=== PATIENT | female | born 1940 | race Caucasian/White ===

== ENCOUNTER 2021-03-21 12:59 | Observation (INO) | payer MEDICARE, OTHER ==
--- NOTE | 2021-03-21 13:08 | ERPHSYRPT ---
- History of Present Illness Time Seen by Provider: 03/21/21 13:05 Historian: patient Exam Limitations: no limitations Physician History: This is an 80-year-old white female who is insulin dependent diabetic and has hypothyroidism who states she has no known coronary artery disease and is not on any blood thinning medication and presents with 3-day history of intermittent and worsening left anterior chest pain which radiates into the left shoulder and left arm. 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 However, in reviewing the patient's records here she did see Dr. Browne in 2011. Timing/Duration: day(s) (3) Activities at Onset: none Quality: aching, pressure Location: other (Left anterior chest) Chest Pain Radiation: arm (Left shoulder and left upper arm) Severity of Pain-Max: moderate Severity of Pain-Current: mild (To moderate) Modifying Factors: Improves With: exertion Prior Chest Pain/Cardiac Workup: no prior chest pain, no prior cardiac workup Nitro Today/Relief: no nitro taken today Aspirin Treatment Today: no aspirin today Allergies/Adverse Reactions: Sulfa (Sulfonamide Antibiotics) Allergy (Verified 03/21/21 13:12) Home Medications: Insulin NPH Human Isophane [Novolin N] 20 units DAILY 03/21/21 [History] Insulin Regular, Human [Novolin R] 10 units DAILY 03/21/21 [History] Insulin Regular, Human [Novolin R] 12 units DAILY 03/21/21 [History] Levothyroxine Sodium [Euthyrox] 1 ea DAILY 03/21/21 [History] Travel Risk - International Travel Have you traveled outside of the country in past 3 weeks: No - Coronavirus Screening Are you exhibiting any of the following symptoms?: No Close contact with a COVID-19 positive Pt in past 14-21 Days: No - Review of Systems Constitutional: No Symptoms Eyes: No Symptoms Ears, Nose, & Throat: No Symptoms Respiratory: No Symptoms Cardiac: Chest Pain Abdominal/Gastrointestinal: No Symptoms Genitourinary Symptoms: No Symptoms Musculoskeletal: No Symptoms Skin: No Symptoms Neurological: No Symptoms Psychological: No Symptoms Endocrine: No Symptoms Hematologic/Lymphatic: No Symptoms Immunological/Allergic: No Symptoms All Other Systems: Reviewed and Negative - Past Medical History Pertinent Past Medical History: Yes - Past Surgical History Past Surgical History: Yes - Nursing Vital Signs Nursing Vital Signs: Initial Vital Signs Pulse Rate 60 03/21/21 13:00 O2 Sat by Pulse Oximetry 97 03/21/21 13:00 Pain Scale Pain Intensity 8 - Physical Exam General Appearance: mild distress, alert, anxiety Eye Exam: PERRL/EOMI, eyes nml inspection Ears, Nose, Throat Exam: normal ENT inspection, moist mucous membranes Neck Exam: normal inspection, non-tender, supple, full range of motion Respiratory Exam: normal breath sounds, chest tenderness (Left anterior chest), lungs clear, respiratory distress, airway intact Cardiovascular Exam: regular rate/rhythm, normal heart sounds, normal peripheral pulses Gastrointestinal/Abdomen Exam: soft, normal bowel sounds, No tenderness Pelvic Exam: not done Rectal Exam: not done Back Exam: normal inspection, normal range of motion, No CVA tenderness, No vertebral tenderness Extremity Exam: normal inspection, normal range of motion, pelvis stable Neurologic Exam: alert, oriented x 3, cooperative, 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 There is no comparison EKG available.) Ordered Tests: Active Orders 24 hr Category Date Time Status Application Integration Architect STAT Care 03/21/21 13:10 Active EKG-ER Only STAT Care 03/21/21 13:09 Active IV Insertion STAT Care 03/21/21 13:09 Active Pulse Oximetry (ED) STAT Care 03/21/21 13:09 Active CHEST 1 VIEW (PORTABLE) Stat Exams 03/21/21 13:10 Completed CBC W DIFF Stat Lab 03/21/21 13:13 Completed CMP Stat Lab 03/21/21 13:13 Completed D-DIMER QUANTITATIVE Stat Lab 03/21/21 13:13 Completed NT PRO BNP Stat Lab 03/21/21 13:13 Completed PROTIME WITH INR Stat Lab 03/21/21 13:13 Completed T4 (Thyroxine) Stat Lab 03/21/21 13:30 Completed TROPONIN Q3H Lab 03/21/21 13:13 Completed TROPONIN Q3H Lab 03/21/21 16:15 Ordered TROPONIN Q3H Lab 03/21/21 19:15 Ordered TROPONIN Q3H Lab 03/21/21 22:15 Ordered TROPONIN Q3H Lab 03/22/21 01:15 Ordered TSH [TSH, 3RD Generation] Stat Lab 03/21/21 13:53 Ordered Medication Summary Generic Name Dose Route Start Last Admin Trade Name Anthony PRN Reason Stop Dose Admin Sodium Chloride 500 mls @ 50 mls/hr 03/21/21 13:15 03/21/21 13:41 Sodium Chloride 0.9% 500 Ml IV 04/20/21 13:14 50 mls/hr .Q10H VERNA Administration Discontinued Medications Generic Name Dose Route Start Last Admin Trade Name Frejay PRN Reason Stop Dose Admin Aspirin 324 mg 03/21/21 13:09 03/21/21 13:41 Aspirin 81 Mg Tab.Chew PO 03/21/21 13:10 324 mg STAT ONE Administration Furosemide 40 mg 03/21/21 14:13 Furosemide 40 Mg/4 Ml Vial IV 03/21/21 14:14 STAT ONE Sodium Chloride Confirm 03/21/21 13:39 Sodium Chloride 0.9% 1000 Ml Administered 03/21/21 13:40 Dose 1,000 mls @ ud .ROUTE .STK-MED ONE Morphine Sulfate 2 mg 03/21/21 13:09 03/21/21 13:56 Morphine Sulfate 2 Mg/Ml Inj IV 03/21/21 13:10 2 mg STAT ONE Administration Morphine Sulfate Confirm 03/21/21 13:54 Morphine Sulfate 2 Mg/Ml Inj Administered 03/21/21 13:55 Dose 2 mg .ROUTE .STK-MED ONE Nitroglycerin 0.4 mg 03/21/21 13:09 03/21/21 13:46 Nitroglycerin 0.4 Mg (Ed) 0.4 Mg Tab.Subl SL 03/21/21 13:10 0.4 mg STAT ONE Administration Nitroglycerin Confirm 03/21/21 13:46 Nitroglycerin 0.4 Mg (Ed) 0.4 Mg Tab.Subl Administered 03/21/21 13:47 Dose 0.4 mg SL .STK-MED ONE Lab/Rad Data: Laboratory Result Diagrams 03/21/21 13:13 03/21/21 13:13 Laboratory Results 03/21/21 03/21/21 03/21/21 Range/Units 13:30 13:13 13:13 WBC (4.0-10.5) K/mm3 RBC (4.1-5.4) M/mm3 Hgb (12.0-16.0) gm/dl Hct (35-47) % MCV (78-100) fl MCH (26-32) pg MCHC (32-36) g/dl RDW (11.5-14.0) % Plt Count (150-450) K/mm3 MPV (7.5-11.0) fl Gran % (36.0-66.0) % Eos # (Auto) (0-0.5) Absolute Lymphs (auto) (1.0-4.6) Absolute Monos (auto) (0.0-1.3) Lymphocytes % (24.0-44.0) % Monocytes % (0.0-12.0) % Eosinophils % (0.00-5.0) % Basophils % (0.0-0.4) % Absolute Granulocytes (1.4-6.9) Basophils # (0-0.4) PT 12.0 (9.4-12.5) SECONDS INR 1.02 (0.8-3.0) D-Dimer 480 (215-500) ng/mL Sodium (137-145) mmol/L Potassium (3.5-5.1) mmol/L Chloride (98-107) mmol/L Carbon Dioxide (22-30) mmol/L Anion Gap (5-15) MEQ/L BUN (7-17) mg/dL Creatinine (0.52-1.04) mg/dL Estimated GFR ML/MIN Glucose (74-106) mg/dL Calcium (8.4-10.2) mg/dL Total Bilirubin (0.2-1.3) mg/dL AST (14-36) U/L ALT (0-35) U/L Alkaline Phosphatase (38-126) U/L Troponin I 0.997 H* (0.000-0.034) ng/mL NT-Pro-B Natriuret Pep (0-1800) pg/mL Serum Total Protein (6.3-8.2) g/dL Albumin (3.5-5.0) g/dL Thyroxine (T4) 12.8 H (5.53-10.96) ug/dL 03/21/21 03/21/21 Range/Units 13:13 13:13 WBC 7.2 (4.0-10.5) K/mm3 RBC 4.40 (4.1-5.4) M/mm3 Hgb 13.4 (12.0-16.0) gm/dl Hct 41.3 (35-47) % MCV 93.9 (78-100) fl MCH 30.5 (26-32) pg MCHC 32.4 (32-36) g/dl RDW 12.9 (11.5-14.0) % Plt Count 174 (150-450) K/mm3 MPV 9.7 (7.5-11.0) fl Gran % 56.3 (36.0-66.0) % Eos # (Auto) 0.18 (0-0.5) Absolute Lymphs (auto) 2.28 (1.0-4.6) Absolute Monos (auto) 0.63 (0.0-1.3) Lymphocytes % 31.8 (24.0-44.0) % Monocytes % 8.8 (0.0-12.0) % Eosinophils % 2.5 (0.00-5.0) % Basophils % 0.6 (0.0-0.4) % Absolute Granulocytes 4.05 (1.4-6.9) Basophils # 0.04 (0-0.4) PT (9.4-12.5) SECONDS INR (0.8-3.0) D-Dimer (215-500) ng/mL Sodium 138 (137-145) mmol/L Potassium 4.0 (3.5-5.1) mmol/L Chloride 97 L (98-107) mmol/L Carbon Dioxide 33 H (22-30) mmol/L Anion Gap 12.0 (5-15) MEQ/L BUN 17 (7-17) mg/dL Creatinine 1.08 H (0.52-1.04) mg/dL Estimated GFR 51.8 ML/MIN Glucose 133 H (74-106) mg/dL Calcium 9.4 (8.4-10.2) mg/dL Total Bilirubin 0.70 (0.2-1.3) mg/dL AST 26 (14-36) U/L ALT 16 (0-35) U/L Alkaline Phosphatase 62 (38-126) U/L Troponin I (0.000-0.034) ng/mL NT-Pro-B Natriuret Pep 2650 H (0-1800) pg/mL Serum Total Protein 6.9 (6.3-8.2) g/dL Albumin 4.1 (3.5-5.0) g/dL Thyroxine (T4) (5.53-10.96) ug/dL - Progress Progress: improved, re-examined Air Movement: good Progress Note: 03/21/21 13:43 Chest x-ray shows chronic features. There are no acute cardiopulmonary processes. Blood Culture(s) Obtained: No Antibiotics given: No Discussed with Dr.: Davis (From cardiology. He recommends transfer if possible. If not possible then Lovenox and cholesterol-lowering agent at this facility until a bed opens up where cardiology is present) Counseled pt/family regarding: lab results, diagnosis, need for follow-up, rad results - Departure Clinical Impression: NSTEMI, initial episode of care Condition: Stable Critical Care Time: Yes Critical Care Time(excluding separately billable procedures): Critical 30-74 mins (30) Referrals: DOCTOR,NO FAMILY [Primary Care Provider] - Follow up/PCP as directed
[2021-03-21] MEDS ORDERED: BABY ASPIRIN 81 MG CHEW PO ONE (13:09)
[2021-03-21] MEDS ORDERED: Nitrostat 0.4 MG (ED) SL ONE ×2 (13:09→13:46)
[2021-03-21] MEDS ORDERED: MORPHINE SULFATE 2 MG INJ IV ONE (13:09)
[2021-03-21] MEDS ORDERED: Sodium Chloride 0.9% 500 ML 500 ML IV SCH (13:15)
[2021-03-21 13:22] LABS: Absolute Neutrophil Ct (ANC) 4.05 (1.4-6.9); Basophil (Absolute #) 0.04 (0-0.4); Eosinophil % 2.5 % (0.00-5.0); Eosinophil (Absolute #) 0.18 (0-0.5); Hematocrit 41.3 % (35-47); Hemoglobin 13.4 gm/dl (12.0-16.0); Lymphocyte (Absolute #) 2.28 (1.0-4.6); Lymphocytes % 31.8 % (24.0-44.0); Mean Cell Volume 93.9 fl (78-100); Mean Corpuscular Hemoglobin 30.5 pg (26-32); Mean Corpuscular Hgb Concent. 32.4 g/dl (32-36); Mean Platelet Volume 9.7 fl (7.5-11.0); Monocyte (Absolute #) 0.63 (0.0-1.3); Monocytes % 8.8 % (0.0-12.0); Neutrophil % 56.3 % (36.0-66.0); Platelet Count 174 K/mm3 (150-450); Red Cell Distribution Width 12.9 % (11.5-14.0); White Blood Count 7.2 K/mm3 (4.0-10.5)
[2021-03-21 13:29] LABS: INR 1.02 (0.8-3.0)
--- NOTE | 2021-03-21 13:37 | XRAY ---
Indication: Chest pain. Comparison: April 26, 2007. Portable chest remains clear again with incidental tiny left lung calcified granulomas. Heart borderline enlarged. Bony thorax intact again with mild osteopenia and degenerative changes. Impression: Nonacute chest with chronic features.
[2021-03-21] MEDS ORDERED: Sodium Chloride 0.9% 1000 ML 1,000 ML ONE (13:39)
[2021-03-21 13:42] LABS: ALBUMIN 4.1 g/dL (3.5-5.0); BILIRUBIN,TOTAL 0.7 mg/dL (0.2-1.3); Calcium 9.4 mg/dL (8.4-10.2); Creatinine 1 1.08 mg/dL (0.52-1.04); EST GLOMERULAR FILTRATION RATE 51.8 ML/MIN; Total Protein 6.9 g/dL (6.3-8.2)
[2021-03-21] MEDS ORDERED: MORPHINE SULFATE 2 MG INJ ONE (13:54)
[2021-03-21] MEDS ORDERED: Lasix 40 MG/4 ML IV ONE (14:13)
[2021-03-21] MEDS ORDERED: ENOXAPARIN SODIUM SQ STA (14:34)
[2021-03-21] MEDS ORDERED: LIPITOR 40MG PO STA (14:36)
[2021-03-21] MEDS ORDERED: LIPITOR 40MG ONE (14:51)
[2021-03-21] MEDS ORDERED: ENOXAPARIN SODIUM SQ ONE (14:52)
[2021-03-21] MEDS ORDERED: Lasix 40 MG/4 ML ONE (15:39)
[2021-03-21 15:56] LABS: INFLUENZA A NEGATIVE (NEGATIVE); INFLUENZA B NEGATIVE (NEGATIVE); RESPIRATORY SYNCTIAL VIRUS NEGATIVE (Negative); SARS-CoV-2 Xpert Express NEGATIVE (NEGATIVE)
[2021-03-21] MEDS ORDERED: TYLENOL 325 MG PO PRN (16:30)
[2021-03-21] MEDS ORDERED: Sodium Chloride 0.9% 1000 ML 1,000 ML IV SCH (16:30)
[2021-03-21] MEDS ORDERED: HUMULIN R SQ PRN (16:30)
[2021-03-21] MEDS ORDERED: Zofran 4 MG/2 ML VIAL IV PRN (16:30)
[2021-03-21] MEDS ORDERED: HUMULIN R SQ SCH (17:00)
[2021-03-21] MEDS ORDERED: Lasix 20 MG/2 ML IV SCH (20:00)
[2021-03-21 20:27] LABS: Appearance CLEAR (CLEAR); Bilirubin NEGATIVE (NEGATIVE); Blood NEGATIVE Ery/ul (0-5); Glucose NEGATIVE (NEGATIVE); Hyaline Casts 0-2 /LPF (0-2); Ketones NEGATIVE (NEGATIVE); Leukocyte Esterase NEGATIVE (NEGATIVE); Nitrite NEGATIVE (NEGATIVE); Protein,Urine Dip NEGATIVE (Negative); Specific Gravity 1.005 (1.005-1.025); Urobilinogen NEGATIVE mg/dL (0-1)
[2021-03-21 21:33] VITALS: PULSE 47
[2021-03-21] MEDS ORDERED: ENOXAPARIN SODIUM SQ SCH (22:00)
[2021-03-21 23:32] VITALS: BP 156/52; O2SAT 99
[2021-03-22] MEDS ORDERED: Novolin N SQ SCH (08:00)
[2021-03-22] MEDS ORDERED: HUMULIN R SQ SCH (08:00)
[2021-03-22] MEDS ORDERED: Lexapro 10 MG PO SCH (10:00)
[2021-03-22] MEDS ORDERED: LIPITOR 40MG PO SCH (10:00)
[2021-03-22] MEDS ORDERED: SYNTHROID 100 MCG PO SCH (10:00)
== END 2021-03-21 23:02 ==
LOC: ED 12:59 → MED SURG 16:19 → ICU 16:57
PROVIDERS: ADMIT Family Medicine; ATTEND Family Medicine
DX: I21.4 Non-ST elevation (NSTEMI) myocardial infarction (principal); E11.9 Type 2 diabetes mellitus without complications; E03.9 Hypothyroidism, unspecified; Z79.899 Other long term (current) drug therapy; Z20.828 Contact with and (suspected) exposure to other viral communicable diseases
CPT/HCPCS: 0241U; 36000; 36415; 71045; 80053; 81001; 82947; 83036; 83880; 84436; 84443; 84484; 85025; 85379; 85610; 87086; 93005; 93041; 93268; 94760; 96360; 96361; 96372; 96374; 96375; 99285; 99291; G0378; J1650; J1940; J2270; A9270-GY